=== PATIENT | male | born 1960 | race Caucasian/White ===

== ENCOUNTER 2018-04-12 13:22 | Emergency (ER) | payer MEDICAID ==
[~2018-04-12] VITALS: Ht 175.3 cm; Wt 69.1 kg
[2018-04-12 15:34] VITALS: BP 122/61
== END 2018-04-12 15:41 | disposition home or self-care (01) ==
LOC: ED 15:20
DX: S86.112A Strain of other muscle(s) and tendon(s) of posterior muscle group at lower leg level, left leg, initial encounter (principal); X58.XXXA Exposure to other specified factors, initial encounter; Y93.89 Activity, other specified; Y92.89 Other specified places as the place of occurrence of the external cause; Y99.8 Other external cause status; M72.2 Plantar fascial fibromatosis
CPT/HCPCS: 99284